=== PATIENT | female | born 1995 | race Caucasian/White ===

== ENCOUNTER 2018-02-08 15:16 | Emergency (ER) | payer SELFPAY ==
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
[2018-02-08 15:45] VITALS: BP 123/79; PULSE 81; TEMP 98.3; BMI 17.5
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
[2018-02-08 16:50] LABS: URINE APPEARANCE CLEAR; URINE BILIRUBIN NEGATIVE (<2.0 mg/dL); URINE COLOR YELLOW; URINE GLUCOSE (UA) NEGATIVE (NEGATIVE); URINE KETONE TRACE (NEGATIVE); URINE LEUK ESTERASE NEGATIVE (NEGATIVE); URINE NITRITE NEGATIVE (NEGATIVE); URINE PROTEIN NEGATIVE (NEGATIVE); URINE UROBILINOGEN NEGATIVE mg/dL (0.2-1.0)
[2018-02-08] MEDS ORDERED: AZITHROMYCIN 500 MG TABLET PO ONE (17:58)
[2018-02-08] MEDS ORDERED: HIV POST EXPOSURE PROPHYLAXIS KIT NR ONE (18:04)
[2018-02-08] MEDS ORDERED: AZITHROMYCIN 1 GM PACKET PO STA (18:05)
[2018-02-08] MEDS ORDERED: cefTRIAXone SODIUM 1 GM VIAL ONE (18:49)
[2018-02-08] MEDS ORDERED: AZITHROMYCIN 250 MG TABLET ONE (18:49)
[2018-02-08] MEDS ORDERED: HIV POST EXPOSURE PROPHYLAXIS KIT PO ONE (18:49)
[2018-02-08] MEDS ORDERED: AZITHROMYCIN 500 MG TABLET ONE (19:04)
== END 2018-02-08 19:35 | disposition left against medical advice (07) ==
LOC: JER 15:16
DX: Z04.41 Encounter for examination and observation following alleged adult rape (principal)
CPT/HCPCS: 36415; 81003; 84703; 86593; 87086; 87389; 87491; 87591; 99283-25